=== PATIENT | male | born 1965 | race Caucasian/White ===

== ENCOUNTER 2017-03-10 20:39 | Emergency (ER) | payer OTHER ==
[~2017-03-10] VITALS: Ht 180.3 cm; Wt 102.1 kg
[~2017-03-10 20:39] MED LIST: KEFLEX500 MG PO
[2017-03-10 21:18] VITALS: BP 129/86
--- NOTE | 2017-03-10 22:03 | ED UPPER/LOWER EXTREMITY COMPL ---
History of Present Illness General Chief Complaint: General Adult Stated Complaint: BIG TOE, R FOOT PAIN, HX GOUT IN SAME Source: patient Exam Limitations: no limitations Vital Signs & Intake/Output Vital Signs & Intake/Output Vital Signs Date Time Temp Pulse Resp B/P B/P Pulse O2 O2 Flow FiO2 Mean Ox Delivery Rate 03/10 2118 98.5 68 20 129/86 98 Room Air ED Intake and Output 03/11 0000 03/10 1200 Intake Total Output Total Balance Patient 225 lb Weight Weight Reported by Patient Measurement Method Allergies Coded Allergies: aspirin (DOES NOT TAKE S/P GASTRIC SLEEVE 03/10/17) Reconcile Medications Cephalexin (Keflex) 500 MG CAP 1 TAB PO BID SKIN INFECTION Colchicine 0.6 MG CAPSULE 1 TAB PO TID PRN GOUT Meloxicam (Mobic) 15 MG TABLET 1 TAB PO DAILY PRN PAIN/INFLAMMATION Methylprednisolone. (Medrol) 4 MG TAB.DS.PK 1 DP PO AD INFLAMMATION 6 on day 1 then reduce by one tablet daily until gone Triage Note: TRIAGE: PT TO ER C/C R GREAT TOE PAIN, ONSET THIS AFTERNOON. HX OF GOUT, LAST FLARE UP 2 YEARS AGO. FEELS SAME. Triage Nurses Notes Reviewed? yes Onset: Gradual Duration: constant Severity: severe Severity Numbers: 7 Method of Injury: unknown HPI: Patient is a 51-year-old male with a past medical history of gout who presents emergency room stating that he has a 3 day history of left great toe pain. Patient denies any mechanism of injury. Denies any change activity levels denies any red meat or alcohol use. Denies any fevers chills. Denies any redness to the region. Pain is localized to the left great toe. Patient states that colchicine in the past has improved his symptoms. (VERONICA ADAME) Past History Travel History Traveled to [place] past 21 day No Medical History Any Pertinent Medical History? 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 No (VERONICA ADAME) Review of Systems Review of Systems Constitutional: Reports: no symptoms. EENTM: Reports: no symptoms. Respiratory: Reports: no symptoms. Cardiovascular: Reports: no symptoms. Gastrointestinal/Abdominal: Reports: no symptoms. Genitourinary: Reports: no symptoms. Musculoskeletal: Reports: see HPI, joint pain, joint swelling. Skin: Reports: no symptoms. Neurological/Psychological: Reports: no symptoms. Hematologic/Endocrine: Reports: no symptoms. Immunological: Reports: no symptoms. All Other Systems: Reviewed and Negative (VERONICA ADAME) Physical Exam Physical Exam General Appearance: no apparent distress, alert, comfortable Neurologic/Tendon: normal sensation, normal motor functions, normal tendon functions, responds to pain, no evidence tendon injury Skin: intact, normal color, warm/dry Comments: Well-developed well-nourished no apparent distress. HEENT: Atraumatic, extraocular motion intact Neck: Supple, no lymphadenopathy Back: Nontender Respiratory: No respiratory distress Extremities: Right foot - normal inspection first MCP joint point tenderness noted no surrounding erythema or warmth Dermatomes intact pedal pulse +2 Neuro: Alert and oriented x3 Psych: Mood affect normal, normal memory normal judgment. (VERONICA ADAME) Progress Differential Diagnosis: arterial insufficiency, compartment syndrome, contusion, dislocation, DVT, fracture, gout, septic arthritis, sprain, tendon injury, GOUT Plan of Care: Patient denies any mechanism of injury and no acute concern at this time for emergent x-rays. Due to history of present illness and exam finds patient has concerns of gout patient had normal steady gait on discharge he was strongly advised to follow-up with podiatry (VERONICA ADAME) Departure Departure Disposition: HOME OR SELF CARE Condition: Stable Clinical Impression Primary Impression: Gouty arthritis of toe of left foot Referrals: GHAZAL VARGAS MD (PCP/Family) ROBB ZAMORA DPM Additional Instructions: As discussed begin the prescription of colchicine, Medrol Dosepak, and meloxicam for your symptoms. Due to taking meloxicam begin [id number] Prilosec. If no better in 3 days follow-up with skin diving teacher Dr. Zamora. Prescriptions waiting a [facility] pharmacy. If symptoms worsen return to emergency room Departure Forms: Customer Survey General Discharge Information Prescriptions: Current Visit Scripts Colchicine 1 TAB PO TID PRN GOUT #9 TAB Methylprednisolone. (Medrol) 1 DP PO AD #1 DP 6 on day 1 then reduce by one tablet daily until gone Meloxicam (Mobic) 1 TAB PO DAILY PRN PAIN/INFLAMMATION #7 TAB (VERONICA ADAME) PA/LANDING WORKER Co-Sign Statement Statement: ED Attending supervision documentation- [] I saw and evaluated the patient. I have also reviewed all the pertinent lab results and diagnostic results. I agree with the findings and the plan of care as documented in the PA's/LANDING WORKER's documentation. [x] I have reviewed the ED Record and agree with the PA's/LANDING WORKER's documentation. [] Additions or exceptions (if any) to the PAs/LANDING WORKER's note and plan are summarized below: [] (JOSEPH HOYOS,SHAHRZAD Whittaker)
[2017-03-10] MEDS ORDERED: MEDROL4 M2 PO (22:11)
[2017-03-10] MEDS ORDERED: MOBIC15 M1 PO (22:11)
[2017-03-10] MEDS ORDERED: COLCHICINE0.6 M3 PO (22:11)
== END 2017-03-10 22:21 ==
LOC: ERH 20:39
DX: M10.9 Gout, unspecified (principal)